=== PATIENT | female | born 1960 | race Caucasian/White ===

== ENCOUNTER 2017-06-23 06:24 | Emergency (ER) | payer OTHER ==
[~2017-06-23] VITALS: Ht 177.8 cm; Wt 86.2 kg
[~2017-06-23 06:24] MED LIST: FUROSEMIDE PO; HYDROCHLOROTHIA25 MG PO; MAXALT10 MG PO; NORCO 7.5-3251 EACH PO; PHENTERMINE H37.5 MG PO; TRAMADOL-ACETAMI1 EA PO; Z ARMOUR THYROID
[2017-06-23] MEDS ORDERED: NEOMYCIN-POLYMY10 ML RIGHT EAR (06:38)
[2017-06-23] MEDS ORDERED: ARMOUR THYROID60 MG PO (06:38)
[2017-06-23] MEDS ORDERED: ZOFRAN ODT4 MG PO (06:38)
[2017-06-23] MEDS ORDERED: MAXALT10 MG PO (06:38)
[2017-06-23] MEDS ORDERED: AZITHROMYCIN250 MG PO (06:38)
[2017-06-23] MEDS ORDERED: SODIUM CHLORIDE 0.9% 1000ML 1,000 ML IV STA (06:48)
[2017-06-23] MEDS ORDERED: KETOROLAC TROMETHAMINE 30 MG/ML VIAL IV STA (06:48)
[2017-06-23] MEDS ORDERED: METOCLOPRAMIDE HCL 10 MG/2ML VIAL IV ONE (07:00)
[2017-06-23] MEDS ORDERED: DIPHENHYDRAMINE HCL INJ 50 MG/ML VIAL IV ONE (07:00)
[2017-06-23] MEDS ORDERED: KETOROLAC TROMETHAMINE 30 MG/ML VIAL ONE (07:43)
[2017-06-23] MEDS ORDERED: KETOROLAC TROMETHAMINE 60 MG/2 ML VIAL IM ONE (07:45)
[2017-06-23] MEDS ORDERED: ONDANSETRON HCL 4 MG ORAL DISINTEGRATING TAB PO ONE (07:45)
[2017-06-23] MEDS ORDERED: HALOPERIDOL LACTATE 5 MG/ML VIAL ONE (09:10)
[2017-06-23 09:16] LABS: BASOPHILS % 0.4 % (0.0-1.0); HEMATOCRIT 37.9 % (34.2-44.1); HEMOGLOBIN 13.1 g/dL (12.0-16.0); LYMPHOCYTES # (AUTO) 0.9 (1.0-3.2); LYMPHOCYTES % 17.8 % (18.0-39.1); MEAN CORPUSCULAR HEMOGLOBIN 29.2 pg (28-32); MEAN CORPUSCULAR HGB CONC 34.6 g/dL (31-35); MEAN CORPUSCULAR VOLUME 84.4 fL (81-99); MONOCYTES # (AUTO) 0.6 (0.2-0.8); MONOCYTES % 12.3 % (4.4-11.3); NEUTROPHILS # (AUTO) 3.5 (2.1-6.9); NEUTROPHILS % 68.9 % (38.7-80.0); PLATELET COUNT 223 x10e3/uL (140-360); RED BLOOD COUNT 4.49 x10e6/uL (3.6-5.1); RED CELL DISTRIBUTION WIDTH 12.7 % (11.7-14.4)
[2017-06-23 09:26] LABS: CLARITY,URINE CLEAR (CLEAR); COLOR,URINE YELLOW (YELLOW); LEUKOCYTE ESTERASE ,URINE NEGATIVE (NEGATIVE); NITRITE,URINE NEGATIVE (NEGATIVE); PROTEIN,URINE DIPSTICK NEGATIVE (NEGATIVE)
[2017-06-23 09:27] LABS: AMPHETAMINES SCREEN,URINE NEGATIVE (NEGATIVE); BILIRUBIN,URINE NEGATIVE (NEGATIVE); KETONES,URINE NEGATIVE (NEGATIVE); PHENCYCLIDINE SCREEN,URINE NEGATIVE (NEGATIVE); URINE UROBILINOGEN 0.2 mg/dL (0.2 - 1)
[2017-06-23 09:28] LABS: BENZODIAZEPINES SCREEN,URINE NEGATIVE (NEGATIVE)
[2017-06-23 09:30] LABS: ANION GAP 12.6 mmol/L (8-16); BLOOD UREA NITROGEN 9 mg/dL (7-26); BUN/CREATININE RATIO 14 (6-25); CALCIUM 8.8 mg/dL (8.4-10.2); CARBON DIOXIDE 24 mmol/L (22-29); CHLORIDE 99 mmol/L (98-107); CREATININE, SERUM 0.64 mg/dL (0.57-1.11); EST GLOMERULAR FILTRATION RATE > 60 ML/MIN (60-); GLUCOSE 110 mg/dL (74-118); POTASSIUM 3.6 mmol/L (3.5-5.1); SODIUM 132 mmol/L (136-145)
[2017-06-23] MEDS ORDERED: HALOPERIDOL LACTATE 5 MG/ML VIAL IM ONE (09:30)
[2017-06-23 09:36] LABS: EPITHELIAL CELLS,URINE MODERATE /LPF; RBC,URINE 0-5 /HPF (0-5); WBC,URINE (MAN) 0-5 /HPF (0-5)
--- NOTE | 2017-06-23 09:54 | Diagnostic Imaging Report ---
EXAMINATION: CHEST SINGLE (PORTABLE) INDICATION: \S\FUO COMPARISON: None FINDINGS: AP view TUBES and LINES: None. LUNGS: Lungs are well inflated. Calcified granuloma in the right lateral lung base. Left basilar atelectasis. Lungs are otherwise clear. There is no evidence of pneumonia or pulmonary edema. PLEURA: No pleural effusion or pneumothorax. HEART AND MEDIASTINUM: The cardiomediastinal silhouette is unremarkable. BONES AND SOFT TISSUES: No acute osseous lesion. Soft tissues are unremarkable. UPPER ABDOMEN: No free air under the diaphragm. IMPRESSION: No acute thoracic abnormality. Signed by: Dr. Chip Calhoun M.D. on 06/23/2017 9:50 AM
--- NOTE | 2017-06-23 14:20 | Diagnostic Imaging Report ---
History: Headache Comparison studies: None Technique: Axial images were obtained from the skull base to the vertex. Coronal and sagittal reconstructions obtained from the axial data. Findings: Scalp/skull: No abnormalities. No fractures, blastic or lytic lesions. Extra-axial spaces: No masses. No fluid collections. Brain sulci: Appropriate for age. Ventricles: Normal in size and configuration. No hydrocephalus. Parenchyma: Few mild left frontal woods radiata white matter hypodensities which are nonspecific but may represent mild microvascular ischemic changes. Mild atherosclerosis of the left carotid terminus and basilar artery. No masses, hemorrhage, acute or chronic cortical vascular insults. Sellar/suprasellar region: No abnormalities Craniocervical junction: Patent foramen magnum. No Chiari one malformation. IMPRESSION: No acute abnormalities. Chronic findings: 1. Few mild left frontal woods radiata white matter hypodensities which are nonspecific but may represent mild microvascular ischemic changes given mild atherosclerosis of the left carotid terminus and basilar artery. These can be evaluated with a nonemergent MRI if the patient does not have typical risk factors for microvascular ischemic changes. Findings discussed with Dr. Lua at 8:31 AM on 06/23/17. The preliminary report was reviewed and a final report issued by Dr. White neuroradiologist on 06/23/2017 at 2:16 PM Signed by: Dr. Radha White M.D. on 06/23/2017 2:16 PM
== END 2017-06-23 12:45 | disposition home or self-care (01) ==
LOC: ER 06:24
DX: G43.009 Migraine without aura, not intractable, without status migrainosus (principal); H92.01 Otalgia, right ear; E03.9 Hypothyroidism, unspecified
CPT/HCPCS: 36415; 70450; 71045; 80048; 80307; 81001; 85025; 99284; J1630; J1885; J1200; J2765; J7030